=== PATIENT | male | born 1990 | race Caucasian/White ===

== ENCOUNTER 2016-11-06 23:08 | Emergency (ER) | payer OTHER ==
[2016-11-07 00:27] LABS: BASOPHIL 0.2 % (0-2); EOSINOPHIL 1.6 % (0-5); HCT 45.4 % (42.0-52.0); HGB 15.7 g/dl (13.2-18.0); LYMPHOCYTE 21.2 % (15-48); MCH 30.8 pg (25.0-31.0); MCHC 34.6 g/dL (32.0-36.0); MCV 89.2 fL (78.0-100.0); MONOCYTE 5.1 % (0-12); MPV 10.2 fL (6.0-9.5); NEUTROPHIL 71.9 % (41-80); PLT 230 K/uL (150-400); RBC 5.09 M/uL (4.70-6.00); RDW 12.9 % (11.5-14.0); WBC 11.1 K/uL (4.0-10.5)
[2016-11-07 00:47] LABS: ALBUMIN 4.8 g/dL (3.5-5.0); BILIRUBIN - TOTAL 0.3 mg/dL (0.1-1.0); CREATININE 1.2 mg/dL (0.7-1.2); GLOBULIN (CALCULATION) 2.4 g/dL (2.2-4.2); POTASSIUM 4.4 mmol/L (3.5-5.1); TOTAL PROTEIN 7.2 g/dL (6.4-8.3)
[2016-11-07 01:02] LABS: AMPHETAMINES NEGATIVE (NEGATIVE); BARBITURATES NEGATIVE (NEGATIVE); BENZODIAZEPINES NEGATIVE (NEGATIVE); COCAINE NEGATIVE (NEGATIVE); MARIJUANA (THC) POSITIVE (NEGATIVE); METHADONE NEGATIVE (NEGATIVE); TRICYCLIC ANTIDEPRESSANT NEGATIVE (NEGATIVE)
== END 2016-11-07 01:36 | disposition home or self-care (01) ==
LOC: FER 23:08
PROVIDERS: Emergency Medicine
DX: G40.909 Epilepsy, unspecified, not intractable, without status epilepticus (principal); F17.200 Nicotine dependence, unspecified, uncomplicated; Z79.899 Other long term (current) drug therapy
CPT/HCPCS: 36415; 80053; 80305; 85025; G0480

== ENCOUNTER 2016-12-25 22:45 | Emergency (ER) | payer OTHER | END 2016-12-26 01:11 | disposition left against medical advice (07) | LOC: FER 22:45 | DX: M79.662 Pain in left lower leg (principal); M79.661 Pain in right lower leg; M54.5 Low back pain; R51 Headache; Z53.8 Procedure and treatment not carried out for other reasons ==

== ENCOUNTER 2016-12-28 02:20 | Emergency (ER) | payer OTHER ==
[2016-12-28 03:39] LABS: BASOPHIL 0.3 % (0-2); HCT 48.5 % (42.0-52.0); HGB 16.1 g/dl (13.2-18.0); LYMPHOCYTE 28.5 % (15-48); MCH 30.9 pg (25.0-31.0); MCHC 33.2 g/dL (32.0-36.0); MCV 93.1 fL (78.0-100.0); MONOCYTE 8.1 % (0-12); MPV 10.6 fL (6.0-9.5); NEUTROPHIL 62.1 % (41-80); PLT 280 K/uL (150-400); RBC 5.21 M/uL (4.70-6.00); RDW 13.2 % (11.5-14.0)
[2016-12-28 03:45] LABS: WBC 21.8 K/uL (4.0-10.5)
[2016-12-28 03:58] LABS: ALBUMIN 5.4 g/dL (3.5-5.0); BILIRUBIN - TOTAL 0.4 mg/dL (0.1-1.0); CREATININE 1.3 mg/dL (0.7-1.2); GLOBULIN (CALCULATION) 2.7 g/dL (2.2-4.2); POTASSIUM 3.2 mmol/L (3.5-5.1); TOTAL PROTEIN 8.1 g/dL (6.4-8.3)
[2016-12-28 04:53] LABS: BILIRUBIN NEGATIVE (NEGATIVE); BLOOD 1+ Ery/uL (NEGATIVE); CLARITY CLEAR (CLEAR); COLOR YELLOW (YELLOW); GLUCOSE (U) NORMAL (NORMAL); KETONE (U) 2+ (MODERATE) mg/dL (NEGATIVE); LEUKOCYTES NEGATIVE Leu/uL (NEGATIVE); NITRITE NEGATIVE (NEGATIVE); PROTEIN TRACE (LOW) mg/dL (NEGATIVE); UROBILINOGEN 0.2 mg/dL (0.2-1.0)
[2016-12-28 05:01] LABS: AMPHETAMINES NEGATIVE (NEGATIVE); BARBITURATES NEGATIVE (NEGATIVE); BENZODIAZEPINES NEGATIVE (NEGATIVE); COCAINE NEGATIVE (NEGATIVE); MARIJUANA (THC) POSITIVE (NEGATIVE); METHADONE NEGATIVE (NEGATIVE); TRICYCLIC ANTIDEPRESSANT NEGATIVE (NEGATIVE)
[2016-12-28 06:03] LABS: CREATININE 1.1 mg/dL (0.7-1.2); POTASSIUM 3.4 mmol/L (3.5-5.1)
== END 2016-12-28 07:03 | disposition home or self-care (01) ==
LOC: FER 02:20
PROVIDERS: Emergency Medicine Emergency Medical Services
DX: G40.409 Other generalized epilepsy and epileptic syndromes, not intractable, without status epilepticus (principal); S09.90XA Unspecified injury of head, initial encounter; S50.01XA Contusion of right elbow, initial encounter; E87.6 Hypokalemia; F12.90 Cannabis use, unspecified, uncomplicated; F17.210 Nicotine dependence, cigarettes, uncomplicated; Z23 Encounter for immunization; Z88.0 Allergy status to penicillin; Z79.899 Other long term (current) drug therapy
CPT/HCPCS: 36415; 70450; 73080; 80048; 80053; 80305; 81001; 82550; 85025; 90471; 90715; 96372; J1100; J1170; J1885; J1953; J2060

== ENCOUNTER 2017-01-14 01:04 | Emergency (ER) | payer OTHER ==
[2017-01-14 02:32] LABS: BASOPHIL 0.3 % (0-2); EOSINOPHIL 2.6 % (0-5); HGB 16.3 g/dl (13.2-18.0); LYMPHOCYTE 24.3 % (15-48); MCH 31.2 pg (25.0-31.0); MCHC 34.7 g/dL (32.0-36.0); MPV 10.4 fL (6.0-9.5); NEUTROPHIL 65.8 % (41-80); PLT 263 K/uL (150-400); RBC 5.22 M/uL (4.70-6.00); RDW 13.2 % (11.5-14.0); WBC 10.8 K/uL (4.0-10.5)
[2017-01-14 02:52] LABS: CREATININE 1.1 mg/dL (0.7-1.2); POTASSIUM 3.5 mmol/L (3.5-5.1)
[2017-01-14 02:54] LABS: BILIRUBIN NEGATIVE (NEGATIVE); BLOOD NEGATIVE Ery/uL (NEGATIVE); CLARITY CLEAR (CLEAR); COLOR YELLOW (YELLOW); GLUCOSE (U) NORMAL (NORMAL); KETONE (U) NEGATIVE (NEGATIVE); LEUKOCYTES NEGATIVE Leu/uL (NEGATIVE); NITRITE NEGATIVE (NEGATIVE); PROTEIN NEGATIVE (NEGATIVE); SPECIFIC GRAVITY <=1.005 (1.001-1.030); UROBILINOGEN 0.2 mg/dL (0.2-1.0)
[2017-01-14 03:02] LABS: AMPHETAMINES NEGATIVE (NEGATIVE); BENZODIAZEPINES NEGATIVE (NEGATIVE); COCAINE NEGATIVE (NEGATIVE); MARIJUANA (THC) POSITIVE (NEGATIVE)
[2017-01-14 03:03] LABS: BARBITURATES NEGATIVE (NEGATIVE); METHADONE NEGATIVE (NEGATIVE); TRICYCLIC ANTIDEPRESSANT NEGATIVE (NEGATIVE)
== END 2017-01-14 04:06 | disposition home or self-care (01) ==
LOC: FER 01:04
PROVIDERS: Emergency Medicine Emergency Medical Services
DX: G40.909 Epilepsy, unspecified, not intractable, without status epilepticus (principal); F17.200 Nicotine dependence, unspecified, uncomplicated; F41.9 Anxiety disorder, unspecified; Z88.0 Allergy status to penicillin
CPT/HCPCS: 36415; 80048; 80305; 81003; 82550; 82553; 85025; J1100; J1885; J1953; J2060; J2270; J2405